=== PATIENT | male | born 1995 | race Two or more races ===

== ENCOUNTER 2024-02-10 13:23 | Emergency (ER) | payer BC ==
[~2024-02-10] VITALS: Ht 172.7 cm; Wt 59.0 kg
== END 2024-02-10 15:14 | disposition home or self-care (01) ==
LOC: ER 13:25
DX: S01.81XA Laceration without foreign body of other part of head, initial encounter (principal); S09.93XA Unspecified injury of face, initial encounter; S01.80XA Unspecified open wound of other part of head, initial encounter; X58.XXXA Exposure to other specified factors, initial encounter; Y93.89 Activity, other specified; Y92.89 Other specified places as the place of occurrence of the external cause; Y99.8 Other external cause status